=== PATIENT | female | born 1950 | race Caucasian/White ===

== ENCOUNTER 2018-02-20 18:57 | Emergency (ER) | payer MEDICARE, MEDICAID ==
[~2018-02-20] VITALS: Ht 167.6 cm; Wt 81.0 kg
[~2018-02-20 18:57] MED LIST: HYDR-565 PO; IBUP-1984 PO; IBUP1TAB11 PO
[2018-02-20 19:22] VITALS: BP 148/96
[2018-02-20] MEDS ORDERED: PENI500T2 PO (20:52)
[2018-02-20] MEDS ORDERED: ACET-3067 PO (20:52)
[2018-02-20] MEDS ORDERED: ketorolac tromethamine 15mg/ml inj. IM ONE (21:10)
== END 2018-02-20 22:06 | disposition home or self-care (01) ==
LOC: ER 18:57
DX: J01.00 Acute maxillary sinusitis, unspecified (principal); K08.89 Other specified disorders of teeth and supporting structures; G89.29 Other chronic pain; F15.90 Other stimulant use, unspecified, uncomplicated; Z98.890 Other specified postprocedural states
CPT/HCPCS: 96372; 99283

== ENCOUNTER 2022-07-23 02:08 | Emergency (ER) | payer MEDICARE, MEDICAID ==
[~2022-07-23] VITALS: Ht 167.6 cm; Wt 88.0 kg
[~2022-07-23 02:08] MED LIST changes: +HYDR-4353 PO; -HYDR-565 PO
[2022-07-23] MEDS ORDERED: ketorolac tromethamine 15mg/ml inj. IV ONE (03:55)
[2022-07-23] MEDS ORDERED: morphine 2 MG/ML inj. syringe IV PRN (03:55)
[2022-07-23] MEDS ORDERED: normal saline 1000ML IV soln IVB ONE (03:55)
[2022-07-23] MEDS ORDERED: LORazepam 2 mg/ml vial IV ONE (03:55)
[2022-07-23 04:30] VITALS: BP 142/76
== END 2022-07-23 04:31 | disposition home or self-care (01) ==
LOC: ER 02:09
DX: Z00.00 Encounter for general adult medical examination without abnormal findings (principal); G89.29 Other chronic pain; M54.50 Low back pain, unspecified; F15.20 Other stimulant dependence, uncomplicated
CPT/HCPCS: 93005; 99283

== ENCOUNTER 2022-09-15 12:28 | Emergency (ER) | payer MEDICARE, MEDICAID ==
[~2022-09-15] VITALS: Ht 162.6 cm; Wt 77.3 kg
[2022-09-15 12:36] VITALS: BP 122/80
== END 2022-09-15 17:47 | disposition left against medical advice (07) ==
LOC: ER 12:29
DX: R53.1 Weakness (principal)
CPT/HCPCS: 99281